=== PATIENT | male | born 1945 | race Caucasian/White ===

== ENCOUNTER 2017-02-16 08:51 | Day surgery (SDC) | payer OTHER ==
[~2017-02-16] VITALS: Ht 175.3 cm; Wt 76.6 kg
[2017-02-16] MEDS ORDERED: IOHEXOL 350 MG/ML 100 ML BTL (for Cath Lab) OTHER ONE (08:52)
[2017-02-16 09:15] VITALS: BP 118/65; PULSE 65; RESP 18; TEMP 98.7; O2SAT 96
[2017-02-16] MEDS ORDERED: LISI-519 PO (09:39)
[2017-02-16] MEDS ORDERED: METF1000 PO ×2 (09:39→13:05)
[2017-02-16] MEDS ORDERED: FENO160T PO (09:39)
[2017-02-16] MEDS ORDERED: TEMA30CA PO (09:39)
[2017-02-16] MEDS ORDERED: ASPI81TA11 PO (09:39)
[2017-02-16] MEDS ORDERED: MECL12.574 PO (09:39)
[2017-02-16] MEDS ORDERED: ATOR40TA16 PO (09:39)
[2017-02-16] MEDS ORDERED: METO25TA3 PO (09:39)
[2017-02-16] MEDS ORDERED: ICOS1CAP PO (09:39)
[2017-02-16] MEDS ORDERED: LEXA20TA PO (09:39)
[2017-02-16] MEDS ORDERED: SERO300T PO (09:39)
[2017-02-16 09:49] LABS: AUTOMATED NEUTROPHIL # 4.2 TH/MM3 (1.8-7.7); BASOPHIL # 0.1 TH/MM3 (0-0.2); BASOPHIL % 0.7 % (0.0-2.0); EOSINOPHIL # 0.2 TH/MM3 (0-0.4); HEMATOCRIT 42.1 % (39.0-51.0); HEMO FLAGS DIFF FINAL; LYMPH % 35.9 % (9.0-44.0); LYMPHOCYTE # 2.8 TH/MM3 (1.0-4.8); MEAN CELL VOLUME 92.9 FL (80.0-100.0); MEAN CORPUSCULAR HGB CONC 34.4 % (32.0-36.0); NEUT % 52.4 % (16.0-70.0); PLATELET COUNT 207 TH/MM3 (150-450); RED BLOOD COUNT 4.53 MIL/MM3 (4.50-5.90); RED CELL DISTRIBUTION WIDTH 13.4 % (11.6-17.2); WHITE BLOOD COUNT 7.9 TH/MM3 (4.0-11.0)
[2017-02-16] MEDS ORDERED: NS 1000P @30 MLS/HR (KVO) IV SCH (10:00)
[2017-02-16 10:03] LABS: APTT (PATIENT) 25.4 SEC (24.3-30.1); INTERNATIONAL NORMALIZED RATIO 1.1 RATIO; PROTHROMBIN TIME - PATIENT 11.7 SEC (9.8-11.6)
[2017-02-16 10:10] LABS: BICARBONATE 23.1 MEQ/L (21.0-32.0); POTASSIUM 4.3 MEQ/L (3.5-5.1)
[2017-02-16] MEDS ORDERED: SODIUM CHLORID 0.9% 500 ML INJ 500 ML ONE (11:43)
[2017-02-16] MEDS ORDERED: HEPARIN-NS/PF INJ 1,000 ML ONE (11:43)
[2017-02-16] MEDS ORDERED: MIDAZOLAM HCL 2 MG/2 ML VIAL ONE (11:44)
[2017-02-16] MEDS ORDERED: HEPARIN SODIUM - IV 10,000 UNITS/10 ML VIAL ONE (12:01)
[2017-02-16] MEDS ORDERED: VERAPAMIL HCL 5 MG/2 ML VIAL ONE (12:01)
[2017-02-16] MEDS ORDERED: NITROGLYCERIN INJ 5 ML ONE (12:03)
--- NOTE | 2017-02-16 12:59 | CATHPROC ---
[facility] HIS Report Study Information Study Number Admission Scheduled Start Study Start [id number] Feb 16 2017 8:51AM 02/16/2017 Feb 16 2017 11:27AM [place] Service Cardiac Catheterization Admit Source Facility Department Other [facility] Physician and Clinical Staff Initial Franko Garibay Grinder Dresser Joe Ruffin,MARILU Recorder Lee Monahan,RT(R) Scrub Heather Michelle,RT(R) (BS) Procedures Performed Procedure Location (Site) Vessel Name Coronary Angiograms LCA Left Coronary Coronary Angiograms RCA Right Coronary Coronary Angiograms HUD[place]LESTON-LAD Left Coronary Coronary Angiograms SVG-OM CIRC Coronary Angiograms Gft. Stump 1 SVG Graft Coronary Angiograms Gft. Stump 2 SVG Graft L Heart Cath Wire insertion Radial (left) Radial Art. Equipment Time Transmitter Chief Description Size Mfg Part Number Used/Scraped TRANSDUCER, TRUWAVE [id number] 12:09 CHANDLER VIRGEN * Used W/STOCKCOCK *[id number] [id number] *[id number] [id number] *[id number] [id number] *[id number] 12:09 Coolio PACK, CCL CUSTOM * Used *[id number] 12:09 Coolio SUPPORT, ARTERIAL ADULT [id number] *[id number] Used BAND, RADIAL COMPRESSION TR [id number] 12:44 PopSeal MEDICAL 29CM Used LARGE 29 *[id number] 12:13 Vendscreen WIRE, EXCHANGE 260CM 3MMJ 260CM Used *[id number] 12:09 NAMIC MANIFOLD, 4 PORT * Used *[id number] 12:09 NYCOMED OMNIPAQUE, 350 MG, 150ML 150ML [id number] Used [id number] 12:09 [employer] BLANKET,WARM AIR CCL * Used *[id number] SHEATH, FR6 TRANSRADIAL RM*[id number] 12:09 [employer] FR 6 Used SLENDER 10CM *[id number] History: Allergies Allergy Reaction Latex, Natural Rubber History: Risk Factors Family History of Hypertension Dyslipidemia Previous [place] Previous Heart Failure Premature CAD Yes Yes Yes No No Prior Valve Prior PCI Prior CABG Prior CABGDate Surgery No No Yes 05/09/2008 Cerebrovascular Peripheral Artery Chronic Lung On Dialysis Diabetes Diabetes Therapy Disease Disease Disease No No No No Yes Oral History: Stress Tests Stress or Imaging Studies Performed Yes Standard Exercise Stress Test No Stress Echo No Stress Test SPECT Stress Test SPECT Result Stress Test SPECT Ischemia Risk/Extent Yes Positive Intermediate Stress Test CMR No Cardiac CTA Coronary Calcium Score No No Labs Hgb (g/dl) Hct (%) RBC (MIL/MM3) WBC (l/cumm) Platelets (thousands) 11.60-17.00 35.00-51.00 4.00-5.90 4.00-11.00 150.00-450.00 14.5 42.1 4.5 7.9 207 Glucose (mg/dl) BUN (mg/dl) Creatinine (mg/dl) BUN:Creatinine (1:x) 74.00-106.00 7.00-18.00 0.50-1.30 10.00-20.00 171 18 1.0 18 Na (meq/l) K (meq/l) Cl (meq/l) CO2 (mmol/L) Ca (mg/dl) 136.00-145.00 3.50-5.10 98.00-107.00 21.00-32.00 8.50-10.10 136 4.3 103 23.1 9.7 PT (sec) INR (PTT:PT) 9.80-11.60 0.90-1.10 11.7 1.1 CPK-MB (ng/ML) 0.50-3.60 Not Drawn Medication Medication Total Dose (Bolus/Oral) Medication Total Dosage/Unit 1% XYLOCAINE 5 mL FENTANYL 50 mcg RADIAL COCKTAIL 5 mL (Bolus) VERSED 1 mg Medications (Bolus/Oral) Medication Time Given Dosage/Unit Administered By Reason 02/16/2017 11:59:27 FENTANYL 25 mcg Joe Ruffin AM Patient arrived on 25 mcg FENTANYL given by Joe Ruffin, RN in Left Antecubital via Peripheral IV. Ordered by Franko Durant. 02/16/2017 12:00:58 1% XYLOCAINE 5 mL Franko Durant PM Patient arrived on 5 mL 1% XYLOCAINE given by Franko Durant in Left Radial via Subcutaneous. Orde red by Franko Durant. 02/16/2017 12:05:08 VERSED 0.5 mg Joe Ruffin PM Patient arrived on 0.5 mg VERSED given by Joe Ruffin, RN in Left Antecubital via Peripheral IV. O rdered by Franko Durant. 02/16/2017 12:05:15 VERSED 0.5 mg Joe Ruffin PM Patient arrived on 0.5 mg VERSED given by Joe Ruffin, MARILU in Left Antecubital via Peripheral IV. O rdered by Franko Durant. 02/16/2017 12:05:50 FENTANYL 25 mcg Joe Ruffin PM Patient arrived on 25 mcg FENTANYL given by Joe Ruffin RN in Left Antecubital via Peripheral IV. Ordered by Franko Durant. 02/16/2017 12:09:59 RADIAL COCKTAIL 5 mL (Bolus) Franko Durant PM Patient arrived on 5 mL (Bolus) RADIAL COCKTAIL given by Franko Durant via Radial. Using [Solutio n Name]. Ordered by Franko Durant. 200mcg nitro, 200mg verapamil, 2500 units heparin. Medication (Drip) Medication Time Given Dosage/Unit Concentration/Unit Diluent (ml) Solutio n 02/16/2017 11:36:45 IV Solutions 0 mL (IV) 500 NaCl .9 AM Patient arrived on IV Solutions given by Franko Durant in Left Antecubital via Peripheral IV. Pum p/Drip Flow = 20 ml/hr using NaCl .9. Initial Case Assessment Cardiovascular HR Rhythm NIBP Chest Pain 65 sr 123/67 0 Edema Present Skin color Skin None Normal Warm Dry Circulatory - Right Pulses Dorsalis Pedis Femoral 2 2 Scale (0,1,2,3,4,d) Circulatory - Left Pulses Dorsalis Pedis Femoral 2 2 Scale (0,1,2,3,4,d) Neurological State Oriented to time-place- Alert Moves all extremities person Respiration - General Respiration Rate SpO2 (%) O2 (lpm) (B/min) 18 96 0 Final Case Assessment Cardiovascular HR Rhythm NIBP Chest Pain 70 sr 114/69 0 Edema Present Skin color Skin None Normal Warm Dry Circulatory - Right Pulses Dorsalis Pedis Femoral 2 2 Scale (0,1,2,3,4,d) Circulatory - Left Pulses Dorsalis Pedis Femoral 2 2 Scale (0,1,2,3,4,d) Neurological State Oriented to time-place- Alert Moves all extremities person Respiration - General Respiration Rate SpO2 (%) O2 (lpm) (B/min) 13 97 0 Chronological Log Time Study Chronological Log 11:30:55 Patient arrived via Bed. Positive Allens test performed by Lee Monahan. 11:30:56 Patient Name, D.O.B, / Armband Verified By R.N. 11:30:57 Consent signed by the physician and the patient and verified by the [facility] staff. 11:30:58 Pre-op and post- op instructions given; patient acknowledges understanding of instructions. 11:31:12 Verbal Stimulation=2 Physical Stimulation=2 Airway=2 Respiration=2 TOTAL=8. (0=absent, 1=li mited, 2=present) 11:31:26 Presedation assessment performed by [facility] RN. 11:31:27 Patient has been NPO for More than 6Hrs. 11:31:29 Skin Breakdown-none present per patient. 11:31:43 A # 20 IV was noted in the Antecubital (left). Grade = 0 Patient arrived on IV Solutions given by Franko Durant in Left Antecubital via Peripheral I V. Pump/Drip Flow = 20 11:36:45 ml/hr using NaCl .9. 11:37:18 History and physical on the chart or being dictated. Vitals capture started with the following parameters, Patient=Adult, Interval=3 min, Initial Pr ayorpe=990 mmHg, 11:40:02 Deflation Rate=5 mmHg, Cuff placed on Left Ankle 11:40:07 Reference ECG taken Assessment: Initial Case, HR=65 BPM, Rhythm=sr, JWSC=658/67 mmhg, Chest Pain=0, Edema=None, Col or=Normal, Skin = Warm, Dry Right Pulses: Ed Ped=2, Femoral=2 11:40:13 Left Pulses: Ed Ped=2, Femoral=2, Radial=2 Neurological: State=Alert, Ox3, FREDERICK Respiration: Resp=18 B/min, SpO2=96 %, O2=0 lpm 11:40:39 HR=68 bpm, TREI=976/67 mmhg, SpO2=96.0 %, Resp=16 B/min, Pain=0, Angelina=10, Bradley=2 11:43:35 HR=67 bpm, UMZH=929/68 mmhg, SpO2=96.0 %, Resp=14 B/min, Pain=0, Angelina=10, Bradley=2 11:45:49 Left Radial and groin(s) prepped with 2% chlorhexidine, and draped after a 3 min. waiting t angel. 11:46:33 HR=66 bpm, EMJO=459/67 mmhg, SpO2=95.0 %, Resp=12 B/min, Pain=0, Angelina=10, Bradley=2 11:49:35 HR=77 bpm, FWEC=985/62 mmhg, SpO2=96.0 %, Resp=7 B/min, Pain=0, Angelina=10, Bradley=2 11:52:35 HR=67 bpm, QOVV=168/60 mmhg, SpO2=95.0 %, Resp=9 B/min, Pain=0, Angelina=10, Bradley=2 11:53:01 Pressure channel 1 zeroed. 11:55:34 HR=67 bpm, MXEA=708/65 mmhg, SpO2=95.0 %, Resp=8 B/min, Bradley=2 11:57:46 MD arrived. 11:58:34 HR=69 bpm, ZDMO=076/66 mmhg, SpO2=99.0 %, Resp=9 B/min, Pain=0, Angelina=10, Bradley=2 Time Out. Correct patient, correct procedure, correct physician, power injector not loaded with contrast with surgical 11:59:25 team present. Time Out Concurred by MD and individual staff in procedure. Not loaded at this ti me. Patient arrived on 25 mcg FENTANYL given by Joe Ruffin, MARILU in Left Antecubital via Peripher al IV. Ordered by 11:59:27 Franko Durant. 12:00:48 Presedation re-assessment performed by [facility] RN. 12:00:50 Case Start 12:00:51 Verbal Stimulation=2 Physical Stimulation=2 Airway=2 Respiration=2 TOTAL=8. (0=absent, 1=li mited, 2=present) Patient arrived on 5 mL 1% XYLOCAINE given by Franko Durant in Left Radial via Subcutaneous . Ordered by 12:00:58 Franko Durant. 12:01:36 HR=73 bpm, KXBO=579/66 mmhg, SpO2=99.0 %, Resp=13 B/min, Pain=0, Angelina=10, Bradley=2 12:04:36 HR=71 bpm, LATA=950/69 mmhg, SpO2=98.0 %, Resp=12 B/min, Pain=0, Angelina=10, Bradley=2 Patient arrived on 0.5 mg VERSED given by Joe Ruffin RN in Left Antecubital via Peripheral IV. Ordered by Bhargav, 12:05:08 Franko. Patient arrived on 0.5 mg VERSED given by Joe Ruffin RN in Left Antecubital via Peripheral IV. Ordered by Bhargav, 12:05:15 Franko. Patient arrived on 25 mcg FENTANYL given by Joe Ruffin RN in Left Antecubital via Peripher al IV. Ordered by 12:05:50 Franko Durant. 12:07:35 HR=71 bpm, RUFV=981/67 mmhg, SpO2=99.0 %, Resp=10 B/min, Pain=0, Angelina=10, Bradley=2 12:09:01 Access site was Radial Artery. left radial A SHEATH, FR6 TRANSRADIAL SLENDER 10CM FR 6 was advanced into the Radial (left) using the Robert doherty 12:09:34 technique. Patient arrived on 5 mL (Bolus) RADIAL COCKTAIL given by Franko Durant via Radial. Using [S olution Name]. 12:09:59 Ordered by Franko Durant. 200mcg nitro, 200mg verapamil, 2500 units heparin. 12:10:35 HR=91 bpm, ICRA=096/70 mmhg, SpO2=98.0 %, Resp=16 B/min, Bradley=2 A JR 4.0 INFINITI CATHETER FR 5 was advanced over a wire. OMNIPAQUE, 350 MG, 150ML 150ML was us ed for 12:11:35 injections. 12:13:37 HR=81 bpm, ELRV=924/59 mmhg, SpO2=96.0 %, Resp=14 B/min, Bradley=2 12:16:33 HR=77 bpm, UXID=963/63 mmhg, SpO2=97.0 %, Resp=13 B/min, Pain=0, Angelina=10, Bradley=2 Recorded Pressure: LV, HR=78, Condition=Condition 1 12:16:57 (Left Ventricle) LV 96/1/9 Recorded Pressure: LV, Ao, HR=75, Condition=Condition 1 12:17:09 (Left Ventricle) LV 99/5/12, (Aorta) Ao 92/54/71 Recorded Pressure: Ao, HR=75, Condition=Condition 1 12:17:58 (Aorta) Ao 95/59/76 12:18:05 The RCA was injected and visualized at various angles. OMNIPAQUE, 350 MG, 150ML 150ML used . 12:18:22 The Gft. Stump 1 was injected and visualized at various angles. OMNIPAQUE, 350 MG, 150ML 15 0ML used. RCA 12:19:33 HR=75 bpm, WAUX=084/66 mmhg, SpO2=98.0 %, Resp=14 B/min, Pain=0, Angelina=10, Bradley=2 12:19:33 The Gft. Stump 2 was injected and visualized at various angles. OMNIPAQUE, 350 MG, 150ML 15 0ML used. DIAG 12:21:36 The SVG-OM was injected and visualized at various angles. OMNIPAQUE, 350 MG, 150ML 150ML us ed. 12:22:34 HR=74 bpm, JKPE=126/68 mmhg, SpO2=97.0 %, Resp=14 B/min, Pain=0, Angelina=10, Bradley=2 After removing the current catheter a JL 4.0 INFINITI CATHETER FR 5 was advanced over a WIRE, E XCHANGE 260CM 12:23:02 3MMJ 260CM. 12:24:13 The LCA was injected and visualized at various angles. OMNIPAQUE, 350 MG, 150ML 150ML used . 12:25:38 HR=73 bpm, CUNA=905/66 mmhg, SpO2=97.0 %, Resp=12 B/min, Bradley=2 12:28:22 Catheter was removed A JL 3.5 INFINITI CATHETER FR 5 was advanced over a wire. OMNIPAQUE, 350 MG, 150ML 150ML was us ed for 12:28:23 injections. 12:28:34 HR=75 bpm, ESGW=109/72 mmhg, SpO2=97.0 %, Resp=19 B/min, Bradley=2 12:30:03 The LCA was injected and visualized at various angles. OMNIPAQUE, 350 MG, 150ML 150ML used . 12:31:36 HR=75 bpm, JUMK=422/68 mmhg, SpO2=98.0 %, Resp=17 B/min, Pain=0, Angelina=10, Bradley=2 12:33:35 The LCA was injected and visualized at various angles. OMNIPAQUE, 350 MG, 150ML 150ML used . 12:34:37 HR=73 bpm, HYOY=004/65 mmhg, SpO2=98.0 %, Resp=14 B/min, Pain=0, Angelina=10, Bradley=2 After removing the current catheter a JR 4.0 INFINITI CATHETER FR 5 was advanced over a WIRE, E XCHANGE 260CM 12:35:14 3MMJ 260CM. 12:37:35 HR=75 bpm, XHHI=419/71 mmhg, SpO2=98.0 %, Resp=13 B/min, Pain=0, Angelina=10, Bradley=2 12:39:21 The H[place]LEST[place]-LAD was injected and visualized at various angles. OMNIPAQUE, 350 MG, 150ML 150ML used. 12:40:37 HR=73 bpm, DXXP=330/65 mmhg, SpO2=98.0 %, Resp=15 B/min, Pain=0, Agnelina=10, Bradley=2 12:41:57 A WIRE, EXCHANGE 260CM 3MMJ 260CM was inserted via Radial (left). 12:42:16 Catheter was removed 12:43:32 Case End 12:43:37 HR=79 bpm, QUMW=829/65 mmhg, SpO2=98.0 %, Resp=13 B/min, Pain=0, Angelina=10, Bradley=2 12:43:55 Catheter(s) removed without difficulty Radial Compression Device Used. 95 mLs of air placed in BAND, RADIAL COMPRESSION TR LARGE 29 29 CM. Affected 12:44:58 hand 9 % O2 saturation. 12:45:42 No case complications noted. 12:45:43 Cine recording checked. 12:45:46 Contrast Scanned 12:45:47 Bedside Report will be given. 12:45:50 A Left Heart Cath was performed. 12:46:36 HR=70 bpm, EDKN=649/69 mmhg, SpO2=97.0 %, Resp=13 B/min, Pain=0, Angelina=10, Bradley=2 Assessment: Final Case, HR=70 BPM, Rhythm=sr, MEWP=509/69 mmhg, Chest Pain=0, Edema=None, Color =Normal, Skin = Warm, Dry Right Pulses: Ed Ped=2, Femoral=2 12:47:27 Left Pulses: Ed Ped=2, Femoral=2, Radial=2 Neurological: State=Alert, Ox3, FREDERICK Respiration: Resp=13 B/min, SpO2=97 %, O2=0 lpm 12:47:45 Vitals capture stopped. 12:50:05 Patient moved to stretcher End Study - Contrast Media Used In Study Contrast Total Opened (mL) Total Used (mL) Total Wasted (mL) Omnipaque 70 70 0 End Study - Maximum Contrast Load Max Contrast Load (mL) 397.7 End Study - Radiation Exposure Fluoro Time (minutes) 11.3 End Study - Patient Disposition Complications Transferred To Telemetry Bed
[2017-02-16] MEDS ORDERED: MISC INFORMATION XX ONE (13:15)
--- NOTE | 2017-02-16 14:36 | EKG ---
Date Performed: 02/16/2017 Time Performed: 09:44:04 PTAGE: 71 years EKG: Sinus rhythm Right bundle branch block Possible inferior infarct - age undetermined Lateral ST-T changes are nons pecific Abnormal ECG NO PREVIOUS TRACING DOCTOR: Franko Durant Interpretating Date/Time 02/16/2017 14:36:13
--- NOTE | 2017-02-17 06:09 | MA ---
cc: FELICIANO REAVES DO DATE OF PROCEDURE February 16, 2017 PROCEDURE Left heart catheterization, coronary angiogram, bypass angiogram, ultrasound guided access, moderate sedation 38 minutes PREPROCEDURE DIAGNOSIS Chest pain, abnormal stress test, history of CABG x5 POSTPROCEDURE DIAGNOSIS Multivessel coronary artery disease, small [place] vessels, history of CABG x 5 (2/5 bypass grafts patent). MEDICATIONS 1. Versed 1 mg. 2. Fentanyl 50 mcg. CONTRAST USED 70 cc. FLUOROSCOPY 11.3 minutes MODERATE SEDATION 38 minutes ESTIMATED BLOOD LOSS 10 cc. PROCEDURAL SUMMARY Leon Moore is a pleasant 71-year-old male who sees my partner, Dr. Alexander, in the office and had an episode of chest pain. The chest pain was somewhat atypical but underwent stress testing which showed possible inferior ischemia. Because of this he was recommended cardiac catheterization. The risks, benefits and alternatives were explained to the patient and he consented as such. He was brought to lab and prepped in the usual sterile fashion. The left radial artery was accessed using ultrasound guidance and a modified Seldinger technique and placement of a 5/6-[place] Slender sheath. This was easily aspirated and flushed. A JR-4 was advanced to the ascending aorta and across the aortic valve for measurement of left ventricular pressure. This was pulled back across the aortic valve showing no significant gradient of aortic stenosis. The JR-4 was used for selective angiography of the right coronary artery, SVG to the first and second diagonal, SVG to the obtuse marginal. This was exchanged out for a JL-4 which was unable to engage the left main so this was exchanged for a JL-3.5 which was used for selective angiography of the left coronary artery system. A JL-3.5 was exchanged for a JR-4 which was used for selective angiography of the [place] to LAD. The JR-4 was then removed over a J-wire. Radial band was placed over the arteriotomy site for hemostasis. The patient left the nitriles lab technician cardiovascularly stable. FINDINGS LEFT MAIN: A normal-sized vessel with adequate reflux. Distally there appears to be the tapering of the left main of 30%. It trifurcates into an LAD, ramus and circumflex. LAD: An overall small vessel at 1.5 mm. It has diffuse 80% disease. It gives off two small diagonals which have 50% ostial disease each. The LAD is a 100% occluded in the midportion. RAMUS: Overall small vessel at about 1.5 mm. The proximal portion appears to be subtotally occluded. LEFT CIRCUMFLEX: Overall small vessel at 1.5 mm. It has diffuse 80% disease with a 90% lesion distally. It gives off one small obtuse marginal. The distal circumflex appears to have minimal collaterals to a distal PLV branch. RCA: 100% occluded in the proximal portion. H[place] to LAD: Widely patent with no significant disease. It fills the LAD both antegrade and retrograde. It appears to give some collaterals to the distal RCA. SVG TO PRESUMED FIRST AND SECOND DIAGONALS: 100% occluded. SVG TO OBTUSE MARGINAL: Widely patent with no significant disease. SVG to RCA: 100% occluded. LVEDP 12. IMPRESSIONS 1. Atypical chest pain. 2. Abnormal stress test showing inferior ischemia. 3. Multivessel coronary artery disease with overall small [place] vessels and HEAD PAPER TESTER of the RCA. 4. History of CABG x 5 (2/5 grafts patent). RECOMMENDATIONS 1. Mr. Moore had atypical chest pain and a stress test showing possible inferior ischemia. 2. Overall he has multivessel disease with relatively small [place] vessels and three of his bypass grafts occluded. 3. Overall he does not appear to have distal targets to the diagonals, ramus or RCA suitable for consideration of repeat bypass. 4. As far as ischemia in the inferior portion, this is most likely due to his HEAD PAPER TESTER of the RCA with minimal collaterals to the right side from the left coronary system. At this time I do not believe that he has [place] vessels that can be intervened on which would be overall helpful for him. 5. Recommend continuing medical management. Thank you for allowing me to see Leon Moore. If there are any questions, please do not hesitate to call. Feliciano Reaves DO VGP/SSB /10:51 PM /5:51 AM [facility]
== END 2017-02-16 16:30 | disposition home or self-care (01) ==
LOC: HCAT 08:51 → HDIC 08:52 → HCAT 16:30
PROVIDERS: ATTEND Nuclear Medicine Nuclear Cardiology
DX: I25.10 Atherosclerotic heart disease of native coronary artery without angina pectoris (principal); I25.810 Atherosclerosis of coronary artery bypass graft(s) without angina pectoris; E11.9 Type 2 diabetes mellitus without complications; I45.10 Unspecified right bundle-branch block; R94.39 Abnormal result of other cardiovascular function study; Z95.1 Presence of aortocoronary bypass graft; Z79.84 Long term (current) use of oral hypoglycemic drugs
CPT/HCPCS: 80048; 85025; 85610; 85730; 93005; 93459; C1769; C1893; J1644; J2250; J3010; J7040; Q9967